=== PATIENT | female | born 1990 | race African-American/Black ===

== ENCOUNTER 2021-04-20 16:14 | Outpatient (CLI) | payer BC ==
[2021-04-21 18:19] LABS: SARS-CoV-2 PCR by NAA Not Detected (NotDetected)
== END 2021-04-20 16:15 | disposition home or self-care (01) ==
LOC: CSHLAB 16:14
PROVIDERS: ATTEND Family Medicine
DX: Z20.822 Contact with and (suspected) exposure to COVID-19 (principal)
CPT/HCPCS: U0003; U0005